=== PATIENT | female | born 1970 | race Caucasian/White ===

== ENCOUNTER 2023-04-20 15:40 | Outpatient (CLI) | payer BC, SELFPAY | END 2023-04-20 15:41 | disposition home or self-care (01) | LOC: KYNREF 15:42 | PROVIDERS: PCP Nurse Practitioner Family; Visit Provider Nurse Practitioner Family | DX: R23.2 Flushing (principal) | CPT/HCPCS: 83001 ==

== ENCOUNTER 2023-06-13 14:57 | Outpatient (CLI) | payer BC, SELFPAY | END 2023-06-13 14:58 | disposition home or self-care (01) | LOC: NFLDREF 14:58 | PROVIDERS: PCP Nurse Practitioner Family; Visit Provider Obstetrics & Gynecology | DX: R68.82 Decreased libido (principal) | CPT/HCPCS: 84270; 84402; 84403 ==

== ENCOUNTER 2023-08-17 15:40 | Outpatient (CLI) | payer BC, SELFPAY ==
--- NOTE | 2023-08-17 15:30 | CRLHL7_ITS ---
For Patients: As a result of the Century Cures Act, medical imaging exams and procedure reports are released immediately into your electronic medical record. You may view this report before your referring provider. If you have questions, please contact your health care provider. DXA BONE MINERAL DENSITY STUDY Current height (in): 70.0. Weight (lb): 154.0. Menopause age: 50. Ethnicity: White. Reason for exam: Screening. 1. Have you had a previous hip or vertebral fracture? No. 2. Have you had any fractures during your adult life which did not result from significant trauma (e.g., auto accident)? No. 3. Did either of your parents have a hip fracture? No. 4. Do you smoke? No. 5. Have you ever taken Glucocorticoids? No. 6. Do you have rheumatoid arthritis? No. 7. Do you have secondary osteoporosis? No. 8. Do you drink 3 or more alcoholic drinks per day? No. 9. Are you being treated for osteoporosis? No. 10. Have you ever taken any of the following medications: Actonel, Evista, Fosamax, Miacalcin, Reclast, Boniva, Forteo, HRT (i.e. estrogen/hormone therapy), Protelos, Prolia, Vitamin D, Calcium, other ??? please specify. ANSWER: Yes, vitamin D, calcium. 11. Do you have any of the following medical conditions: Anorexia or bulimia, asthma or emphysema, end stage renal disease, hyperparathyroidism, any seizure disorders, cancer, inflammatory bowel diseases, hysterectomy, other ??? please specify. ANSWER: No. 12. What was your maximum height (inches)? 70. 13. Do you perform weight bearing exercise regularly? Yes. 14. Do you regularly consume dairy products? Yes. 15. Do you drink caffeinated beverages? Yes. 16. At what age did your period start? 13. 17. Are you premenopausal? No. 18. How many full-term pregnancies have you had? 2. 19. Have you ever missed your period for more than 6 months in a row (not including or menopause)? Yes. TECHNIQUE: Bone mineral density study was performed using the [employer]. FINDINGS: The results of the study expressed as bone mineral density (BMD) are as follows: Lumbar spine L1 to L4: BMD: 0.946 g/cm2. T-score: -0.9. Z-score: 0.0. Neck Left: BMD: 0.781 g/cm2. T-score: -0.6. Z-score: 0.3. Right: BMD: 0.784 g/cm2. T-score: -0.6. Z-score: 0.4. Total Left: BMD: 0.905 g/cm2. T-score: -0.3. Z-score: 0.3. Right: BMD: 0.909 g/cm2. T-score: -0.3. Z-score: 0.3. IMPRESSION: Normal bone density. Lenny Burroughs M.D. Diagnostic Radiologist [email or web address] Transcribed: 3:01 pm DW/Dictated by: Lenny Burroughs MD @ 08/18/2023 10:53:00 AM (Electronically Signed)
== END 2023-08-17 15:41 | disposition home or self-care (01) ==
LOC: RAD 15:40
PROVIDERS: PCP Nurse Practitioner Family; Visit Provider Obstetrics & Gynecology
DX: Z13.820 Encounter for screening for osteoporosis (principal)
CPT/HCPCS: 77080

== ENCOUNTER 2025-09-30 07:41 | Emergency (ER) | payer BC, SELFPAY ==
[2025-09-30 08:04] VITALS: BP 138/74; PULSE 95; RESP 16; TEMP 37.4; O2SAT 93; BMI 23.7
--- NOTE | 2025-09-30 08:28 | CRLHL7_ITS ---
For Patients: As a result of the Cures Act, medical imaging exams and procedure reports are released immediately into your electronic medical record. You may view this report before your referring provider. If you have questions, please contact your health care provider. INDICATION: Fever and cough TECHNIQUE: Chest 2 views. COMPARISON: None. FINDINGS/ IMPRESSION: No consolidation, effusion or pneumothorax. Cardiac size is within normal limit without pulmonary edema. Scattered degenerative changes of the spine. Dictated by Jose Perry MD @ 09/30/2025 8:47:11 AM (Electronically Signed)
--- NOTE | 2025-09-30 08:38 | ED.GENADULT ---
HPI - General Adult General Chief complaint: Shortness of Breath/Dyspnea Stated complaint: Body aches, fever Time Seen by Provider: 09/30/25 08:37 History of Present Illness HPI narrative: This 55-year-old female comes in with body aches and pains and some shortness of breath. She states that she began to feel ill with upper respiratory symptoms about a week ago. She reports sore throat and cough. Three days ago she developed chills and did measure a fever at around 101-102 degrees F. she states that she has had pneumonia in the past and these symptoms feel similar. She arrives here with normal vital signs except her oximetry on room air is decreased somewhat at 93%. Related Data Home Medications ?Medication ?Instructions ?Recorded ?Confirmed levonorgestrel (Mirena) 1 device intrauterine ONCE 06/13/23 01/29/25 Previous Rx's ?Medication ?Instructions ?Recorded qjdudw-jzqutycj-byovrqb (pork) 2 cap PO TID PRN EPI 90 days #720 06/07/22 20,000-63,000-84k unit capsule, caps del rel (Zenpep) pantoprazole 40 mg tablet,delayed 40 mg PO ONCE 90 days #90 tabs 06/07/22 release valacyclovir 1 gram tablet 1,000 mg PO ONCE 90 days #90 tabs 06/07/22 citalopram 40 mg tablet (Celexa) 40 mg PO QDAY 90 days #90 tabs 08/16/22 dnpbgs-qgpodjez-aeukuvo (pork) 2 cap PO 3XD PRN exocrine 05/06/24 20,000-63,000-84k unit capsule, pancreatic insufficiency #180 caps del rel (Zenpep) citalopram 40 mg tablet 40 mg PO QDAY #90 tabs 07/30/24 epinephrine 0.3 mg/0.3 mL 0.3 ml IM Q5-15M PRN anaphylaxis 1 07/30/24 injection, auto-injector day #2 ea valacyclovir 1 gram tablet 1,000 mg PO QDAY 90 days #90 tabs 07/30/24 pantoprazole 40 mg tablet,delayed 40 mg PO QDAY #90 tabs 10/01/24 release estradiol 0.1 mg/24 hr semiweekly 1 patch transdermal 2XW #8 ea 01/07/25 transdermal patch (Nadia) estradiol 0.1 mg/24 hr semiweekly 1 patch transdermal 2XW #8 ea 01/29/25 transdermal patch amoxicillin 875 mg-potassium 1 tab PO BID #10 tabs 09/30/25 clavulanate 125 mg tablet fluconazole 100 mg tablet 100 mg PO DAILY #10 tabs 09/30/25 ketorolac 10 mg tablet 10 mg PO TID 5 days #15 tabs 09/30/25 Allergies Allergy/AdvReac Type Severity Reaction Status Date / Time erythromycin base Allergy Severe Chest Pain Verified 04/09/25 12:28 benzonatate Allergy Intermediate Hives Verified 04/09/25 12:28 codeine Allergy Intermediate Hives Verified 04/09/25 12:28 Iodinated Contrast Media Allergy Swelling Verified 04/09/25 12:28 of Lip/Tongue/Throat Review of Systems Status of ROS: Reports: 10 or more systems reviewed and unremarkable except as noted in History and below Narrative: Constitutional: No weight gain or loss. She reports a fever. Eyes: No discharge. No vision changes. HENT: No congestion, no ear pain. She reports sore throat. Cardiovascular: No chest pain, no palpitations. Respiratory: She reports a cough. Gastrointestinal: No abdominal pain, no vomiting, no diarrhea. Genitourinary: No dysuria, no hematuria. Musculoskeletal: Normal range of motion. Skin: No rashes, no pruritis. Neurological: No dizziness, weakness, sensory change, speech change. Endo/Heme/Allergies: No bruising or bleeding. No polydipsia. Pysch: no suicidality, no anxiety, no insomnia. All other systems reviewed and are negative. 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 - Lesion of plantar nerve, unspecified lower limb (ICD-10) Coarctation of aorta ?Q25.1 - Coarctation of aorta (ICD-10) Anxiety ?F41.9 - Anxiety disorder, unspecified (ICD-10) Surgical History (System 04/09/25 @ 12:28 by Grace Galan) Hx of varicose vein stripping ?Z98.890 - Other specified postprocedural states (ICD-10) H/O foot surgery (12/2021) ?Z98.890 - Other specified postprocedural states (ICD-10) History of bladder surgery ?Z98.890 - Other specified postprocedural states (ICD-10) S/P tonsillectomy ?Z90.89 - Acquired absence of other organs (ICD-10) Status post right foot surgery (03/15/21) ?Z98.890 - Other specified postprocedural states (ICD-10) Family History (System 04/09/25 @ 12:28 by Grace Galan) Father Diabetes Breast cancer Pancreatic cancer Paternal Grandmother Myocardial infarction Brother No problems noted. Social History (System 04/09/25 @ 12:28 by Grace Galan) Smoking Status: Never smoker Exam Narrative: Exam Narrative: Constitutional: Well-developed, well-nourished, no acute distress. HEENT: Normocephalic, atraumatic. Neck: Normal range of motion. Nontender. Supple. Heart: Regular. No murmurs. Normal rate. Intact distal pulses. Lungs: Clear to auscultation. No chest discomfort. No wheezes, rhonchi, or rales. Abdomen: Normal bowel sounds. Nontender. No rebound tenderness. Genitalia: Deferred. Back: No midline tenderness. Normal range of motion. Extremities: Normal range of motion. No injury. Skin: Intact. No rash. Warm. No erythema or pallor. Neurologic: No altered sensation. No weakness. Alert and oriented. Psychiatric: No suicidality. No anxiety or depression. No insomnia. Nursing notes and vitals signs are reviewed. Const: Vital Signs, click to edit/add: Vital Signs - 24 hr 09/30/25 08:04 Temperature 99.4 F Pulse Rate [Pulse Oximeter] 95 Respiratory Rate 16 Blood Pressure [Ri ght Upper Arm] 138/74 Pulse Oximetry 93 Oxygen Delivery Me thod Room Air Course Vital Signs Vital signs: Initial Vital Signs Temperature 99.4 F 09/30/25 08:04 Temperature Source Temporal Artery Scan 09/30/25 08:04 Pulse Rate 95 09/30/25 08:04 Respiratory Rate 16 09/30/25 08:04 Blood Pressure 138/74 09/30/25 08:04 Blood Pressure Mean 95 09/30/25 08:04 Blood Pressure Position Sitting 09/30/25 08:04 Pulse Oximetry 93 09/30/25 08:04 Oxygen Delivery Method Room Air 09/30/25 08:04 Vital Signs Temperature 99.4 F 09/30/25 08:04 Pulse Rate 95 09/30/25 08:04 Respiratory Rate 16 09/30/25 08:04 Blood Pressure 138/74 09/30/25 08:04 Pulse Oximetry 93 09/30/25 08:04 Oxygen Delivery Method Room Air 09/30/25 08:04 Temperature 99.4 F 09/30/25 08:04 Pulse Rate 95 09/30/25 08:04 Respiratory Rate 16 09/30/25 08:04 Blood Pressure 138/74 09/30/25 08:04 Pulse Oximetry 93 09/30/25 08:04 Oxygen Delivery Method Room Air 09/30/25 08:04 Medications Administered Medications: Discontinued Medications Generic Name Dose Route Start Last Admin Trade Name Radha PRN Reason Stop Dose Admin Dexamethasone 10 mg 09/30/25 08:28 09/30/25 08:58 Dexamethasone 2 Mg Tablet PO 09/30/25 08:29 10 mg ONCE ONE Administration Medical Decision Making [facility] Narrative Medical decision making narrative: This patient comes in with report of fever and hypoxia, yet without need for oxygen, she had symptoms starting about a week ago but got distinctly worse a couple days ago. Chest x-ray is negative for acute cardiopulmonary disease. Additionally nasal swab and throat swabs return negative for does testings. I did discuss other labs which the patient declined for now. She is maintaining sufficient vital signs. She did receive an oral dose of dexamethasone 10 mg. Her symptoms are suspicious for a secondary infection and despite negative results on the tests I think that it is best to prescribe an antibiotic. She received prescriptions for Augmentin, Toradol, and Diflucan. I advised her regarding signs and symptoms that would indicate need for return re-evaluation. Lab Data Labs: Lab Results 09/30/25 09/30/25 Range/Units 08:10 08:40 SARS-CoV-2 (PCR) Negative SARS-CoV-2 (Negative) Influenza Type A (PCR) Negative PCR FLU A (Negative) Influenza Type B (PCR) Negative PCR FLU B (Negative) RSV (PCR) Negative PCR RSV (Negative) Group A Strep DNA NOT DETECTED (Not Detectd) Imaging Data Chest x-ray: Radiologist's impression: No consolidation, effusion or pneumothorax. Cardiac size is within normal limit without pulmonary edema. Scattered degenerative changes of the spine. Discharge Plan Discharge Clinical Impression: Acute lower respiratory infection Patient Disposition: Home, Self-Care Condition: Stable Additional Instructions: Take medications as needed and directed. Follow up with MD as needed or return if symptoms are persistent or worsening. Prescriptions: New ketorolac 10 mg tablet 10 mg PO TID 5 Days Qty: 15 0RF amoxicillin-pot clavulanate 875-125 mg tablet 1 tab PO BID Qty: 10 0RF fluconazole 100 mg tablet 100 mg PO DAILY Qty: 10 0RF No Action Mirena 21 mcg/24 hours (8 yrs) 52 mg intrauterine device 1 device intrauterine ONCE Patient Comments: Placed on 11/02/2018 Rx Instructions: as a single dose Placed on 11/02/2018 citalopram 40 mg tablet 40 mg PO QDAY Qty: 90 3RF epinephrine 0.3 mg/0.3 mL auto-injector 0.3 ml IM Q5-15M PRN (Reason: anaphylaxis) 1 Days Qty: 2 1RF Rx Instructions: do not exceed 3 doses per episode valacyclovir 1 gram tablet 1,000 mg PO QDAY 90 Days Qty: 90 3RF estradiol 0.1 mg/24 hr patch semiweekly 1 patch transdermal 2XW Qty: 8 12RF Rx Instructions: apply 1 patch for 3 days alternating with 1 patch for 4 days each week for 3 wks per 4-wk cycle pantoprazole 40 mg tablet,delayed release (DR/EC) 40 mg PO ONCE 90 Days Qty: 90 3RF Zenpep 20,000-63,000- 84,000 unit capsule,delayed release(DR/EC) 2 cap PO TID PRN (Reason: EPI) 90 Days Qty: 720 3RF Rx Instructions: administer with meals and/or snacks valacyclovir 1 gram tablet 1,000 mg PO ONCE 90 Days Qty: 90 3RF citalopram [Celexa] 40 mg tablet 40 mg PO QDAY 90 Days Qty: 90 1RF Zenpep 20,000-63,000- 84,000 unit capsule,delayed release(DR/EC) 2 cap PO 3XD PRN (Reason: exocrine pancreatic insufficiency) Qty: 180 0RF pantoprazole 40 mg tablet,delayed release (DR/EC) 40 mg PO QDAY Qty: 90 3RF estradiol [Nadia] 0.1 mg/24 hr patch semiweekly 1 patch transdermal 2XW Qty: 8 1RF Rx Instructions: apply 1 patch for 3 days alternating with 1 patch for 4 days each week for 3 wks per 4-wk cycle Follow Up/Referrals: Arianna Noble, [employer], [employer] [Nurse Practitioner, Family Practice] Stand Alone Forms: MyHealth Info Instructions
[2025-09-30 09:02] LABS: PCR FLU A Negative PCR FLU A (Negative); PCR FLU B Negative PCR FLU B (Negative); PCR RSV Negative PCR RSV (Negative); SARS PCR* Negative SARS-CoV-2 (Negative)
[2025-09-30 09:14] LABS: Strep A DNA Probe* NOT DETECTED (Not Detectd)
== END 2025-09-30 09:47 | disposition home or self-care (01) ==
LOC: ED 09:35
PROVIDERS: Family Medicine; Emergency Provider Emergency Medicine Emergency Medical Services; PCP Nurse Practitioner Family
DX: J22 Unspecified acute lower respiratory infection (principal)
CPT/HCPCS: 71046; 87631; 87651; 99284; A9270